=== PATIENT | male | born 1985 | race Caucasian/White ===

== ENCOUNTER 2020-06-07 14:17 | Emergency (ER) | payer OTHER, SELFPAY ==
[2020-06-07 15:45] VITALS: BP 150/84; PULSE 60; RESP 16; TEMP 36.7; O2SAT 99; BMI 32.8
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
== END 2020-06-07 16:22 | disposition home or self-care (01) ==
PROVIDERS: Emergency Provider Internal Medicine; PCP Internal Medicine
DX: S39.012A Strain of muscle, fascia and tendon of lower back, initial encounter (principal); M54.6 Pain in thoracic spine; V49.3XXA Car occupant (driver) (passenger) injured in unspecified nontraffic accident, initial encounter; Y93.9 Activity, unspecified; Y92.410 Unspecified street and highway as the place of occurrence of the external cause; Y99.9 Unspecified external cause status
CPT/HCPCS: 99283

== ENCOUNTER 2021-04-30 09:21 | Emergency (ER) | payer OTHER, SELFPAY ==
--- NOTE | ~2021-04-30 | US_ITS ---
EXAMINATION: CT BRAIN WITHOUT CONTRAST. ULTRASOUND RIGHT LOWER EXTREMITY VENOUS DUPLEX. CLINICAL INFORMATION: Right lower extremity paresthesia. Right leg numbness. COMPARISON: None TECHNIQUE: 5 mm thin axial and reformatted 2 mm thin sagittal and coronal images of brain were obtained without contrast. DLP 676. Routine grayscale and color Doppler imaging of right lower extremity was performed. FINDINGS: BRAIN: There is no acute intra-axial, extra-axial bleed, masses or midline shift. There is no acute infarction evolution. There is no edema. Both lateral ventricles are symmetrical in size and configuration without enlargement. Bone windows reveal no calvarial abnormality. Bilateral paranasal sinuses and mastoid air cells are well-aerated. There is no scalp soft tissue abnormality. ULTRASOUND VENOUS RIGHT LEG: There is normal compression, augmentation and flow seen in the right common femoral, greater saphenous, superficial femoral, profunda, popliteal, posterior tibial and peroneal veins. The soft tissues are normal. US/US venous duplex LE RT IMPRESSION: No acute intracranial process. Especially no evidence of acute ischemia or infarct. Normal right lower extremity venous study. No evidence of DVT.
[2021-04-30 09:24] VITALS: BP 164/114; PULSE 104; RESP 18; TEMP 36.6; O2SAT 100; BMI 31.4
[2021-04-30 10:05] VITALS: BP 171/111; PULSE 75; RESP 15; TEMP 36.7; O2SAT 96
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
[2021-04-30 10:25] LABS: MANUAL DIFF FLAG NO
[2021-04-30 10:26] LABS: Basophils Absolute Auto 0.1 X10*3/uL (0.0-0.2); Basophils Percent Auto 0.7 % (0-2); Eosinophils Absolute Auto 0.1 X10*3/uL (0.0-0.4); Eosinophils Percent Auto 0.9 % (0-4); Hematocrit 49.9 % (42-52); Hemoglobin 16.6 g/dl (14.0-18.0); Imm Gran Abs Auto 0.02 X10*3/uL (0.00-0.03); Imm Gran Pct Auto 0.2 % (0.0-0.4); Lymphocytes Absolute Auto 1.4 X10*3/uL (1.2-4.9); Lymphocytes Percent Auto 15.9 % (20-40); Mean Corpuscular HGB Conc 33.3 g/dl (31.0-36.0); Mean Corpuscular Hemoglobin 29.7 pg (27.0-33.0); Mean Corpuscular Volume 89.3 fL (80-98); Monocytes Absolute Auto 0.7 X10*3/uL (0.1-1.2); Neutrophils Absolute Auto 6.4 X10*3/uL (2.0-8.3); Neutrophils Percent Auto 74.3 % (45-73); Platelet Count 200 X10*3/uL (160-400); Red Blood Count 5.59 X10*6/uL (4.60-5.80); Red Cell Distribution Width 12.6 % (11.0-16.0); White Blood Count 8.6 X10*3/uL (4.8-10.8)
[2021-04-30 10:50] LABS: Alanine Aminotransferase 50 U/L (0-40); Albumin Level 4.8 g/dL (3.5-5.0); Alkaline Phosphatase 104 U/L (39-117); Anion Gap 7 (12-20); Aspartate Amino Transferase 28 U/L (5-37); Bilirubin Direct 0.2 mg/dL (0.0-0.5); Bilirubin Total 0.5 mg/dL (0.0-1.0); Blood Urea Nitrogen 9 mg/dL (9-16); Calcium 9.6 mg/dL (8.4-10.2); Carbon Dioxide 29 mmol/L (22-29); Chloride 107 mmol/L (96-108); Creatinine Clr Calc Pharmacy 110.4; Estimated Glomerular Filt Rate > 60; Glucose Random 97 mg/dL (60-115); Magnesium 2.3 mg/dL (1.6-2.6); Potassium 4.1 mmol/L (3.3-5.1); Sodium 139 mmol/L (135-145); Total Protein 7.8 g/dL (6.5-8.0)
[2021-04-30 11:51] VITALS: BP 135/82; PULSE 76
== END 2021-04-30 12:02 | disposition home or self-care (01) ==
PROVIDERS: Nurse Practitioner Family; Emergency Provider Emergency Medicine; PCP Internal Medicine
DX: R20.2 Paresthesia of skin (principal); R03.0 Elevated blood-pressure reading, without diagnosis of hypertension
CPT/HCPCS: 36415; 70450; 80048; 80076; 83735; 85025; 93971; 99284

== ENCOUNTER 2021-08-01 07:44 | Emergency (ER) | payer OTHER, SELFPAY ==
--- NOTE | ~2021-08-01 | CT_ITS ---
EXAMINATION: CT ABDOMEN AND PELVIS WITHOUT CONTRAST CLINICAL INFORMATION: Left-sided flank pain COMPARISON: None TECHNIQUE: Multidetector volumetric imaging was performed from the superior aspect of the liver through the pubic symphysis. Sagittal and coronal reformatted images were obtained on the technologist's workstation. This CT examination was performed using dose optimization techniques as appropriate, variously including the following: *Automated exposure control *Adjustment of mA and/or kV according to patient size (this includes techniques or standardized protocols for targeted exams where dose is matched to indication/reason for exam; i.e. extremities or head) *Use of iterative reconstruction technique DLP: 731 mGy-cm FINDINGS: LUNG BASES: The lung bases are clear. The heart size is normal. LIVER, GALLBLADDER, AND BILIARY TREE: The liver is normal in size, shape, and attenuation. No focal hepatic lesion or biliary ductal dilatation is present. The gallbladder is unremarkable with no evidence of radiopaque gallstones, gallbladder wall thickening, or obvious pericholecystic inflammatory changes. PANCREAS: Unremarkable. SPLEEN: Unremarkable. ADRENAL GLANDS: Unremarkable. KIDNEYS AND URETERS: The kidneys are normal in size, shape, and attenuation. No hydronephrosis, hydroureter, or calculi seen. No perinephric stranding. BLADDER: There is nonobstructive left UVJ intramural 4 mm radiopaque calculi without hydroureteronephrosis. It is best visualized on axial image 88/3. GASTROINTESTINAL TRACT: There is scattered stool, diverticula and gas seen throughout the colon without mural thickening or diverticulitis. There is no obstruction. The small bowel loops are normal caliber. Appendix is normal caliber. ABDOMINAL WALL: No significant hernia is appreciated. LYMPH NODES: Normal. VASCULAR: Unremarkable. PELVIC VISCERA: There is no pelvic mass seen. There is no free fluid. OSSEOUS STRUCTURES: No lytic or sclerotic process seen. CT/CT abdomen pelvis wo con IMPRESSION: Intramural left UVJ 4 mm radiopaque calculi without hydroureteronephrosis. Fleischner guidelines were followed.
[2021-08-01 07:50] VITALS: BP 147/88; PULSE 72; RESP 18; TEMP 37; O2SAT 99; BMI 33.3
--- NOTE | 2021-08-01 08:05 | PC.NURSE ---
ATTEMPTED TO CALL PATIENT INTO ED. NO ANSWER IN WAITING ROOM
[2021-08-01 08:22] VITALS: BP 146/94; PULSE 61; RESP 14; TEMP 36.8; O2SAT 96
[2021-08-01 08:36] LABS: Appearance Urine CLEAR; Color Urine YELLOW; Glucose Urine UA NEG (NEG); Leukocyte Esterase Urine NEG (NEG); Nitrite Urine NEG (NEG); PH 5.5 (5.0-8.0); Specific Gravity - Urine >= 1.030 (1.005-1.025); UACC Culture Trigger NO; Urine Blood 3+ (NEG); Urine Ketones NEG (NEG); Urine Protein NEG (NEG-TRACE)
[2021-08-01 08:36] LABS: MANUAL DIFF FLAG NO
[2021-08-01 08:37] LABS: Basophils Absolute Auto 0.1 X10*3/uL (0.0-0.2); Basophils Percent Auto 0.7 % (0-2); Eosinophils Absolute Auto 0.1 X10*3/uL (0.0-0.4); Eosinophils Percent Auto 1.3 % (0-4); Hematocrit 49.7 % (42.0-52.0); Hemoglobin 16.5 g/dl (14.0-18.0); Imm Gran Abs Auto 0.06 X10*3/uL (0.00-0.03); Imm Gran Pct Auto 0.6 % (0.0-0.4); Lymphocytes Absolute Auto 1.9 X10*3/uL (1.2-4.9); Lymphocytes Percent Auto 17.8 % (20-40); Mean Corpuscular HGB Conc 33.2 g/dl (31.0-36.0); Mean Corpuscular Hemoglobin 30.1 pg (27.0-33.0); Mean Corpuscular Volume 90.7 fL (80.0-98.0); Mean Platelet Volume 11.1 fL (9.4-12.4); Monocytes Absolute Auto 0.8 X10*3/uL (0.1-1.2); Monocytes Percent Auto 7.5 % (2-11); Neutrophils Absolute Auto 7.5 x10*3/uL (2.0-8.3); Neutrophils Percent Auto 72.1 % (45-73); Platelet Count 196 X10*3/uL (160-400); Red Blood Count 5.48 X10*6/uL (4.60-5.80); Red Cell Distribution Width 12.7 % (11.0-16.0); White Blood Count 10.4 X10*3/uL (4.8-10.8)
[2021-08-01 08:45] LABS: WBC Urine 0-2 /HPF (0-4)
[2021-08-01 08:46] LABS: Mucus Urine 1+ /LPF; Squamous Epithelial Cell Urine TRACE /LPF
[2021-08-01 08:57] LABS: Alanine Aminotransferase 35 U/L (0-40); Albumin Level 4.5 g/dL (3.5-5.0); Alkaline Phosphatase 98 U/L (39-117); Aspartate Amino Transferase 21 U/L (5-37); Bilirubin Direct 0.2 mg/dL (0.0-0.5); Bilirubin Total 0.5 mg/dL (0.0-1.0); Blood Urea Nitrogen 12 mg/dL (9-16); Calcium 9.8 mg/dL (8.4-10.2); Creatinine Clr Calc Pharmacy 117.2; Estimated Glomerular Filt Rate > 60; Glucose Random 106 mg/dL (60-115); Total Protein 7.5 g/dL (6.5-8.0)
[2021-08-01 09:09] LABS: Anion Gap 10 (12-20); Carbon Dioxide 26 mmol/L (22-29); Chloride 107 mmol/L (96-108); Potassium 4.1 mmol/L (3.3-5.1); Sodium 139 mmol/L (135-145)
--- NOTE | 2021-08-01 09:20 | ED_ITS ---
HPI - General Adult General Chief complaint: Abdominal Pain Stated complaint: back pain quest kidney stone Time Seen by Provider: 08/01/21 09:19 Source: patient Mode of arrival: ambulatory Limitations: no limitations History of Present Illness HPI narrative: 36-year-old male with a history of kidney stones states that at 6:45 a.m. this morning he had sudden severe left flank pain that lasted for 20 minutes. Patient vomited from the pain it was at severe. Patient felt like he needed to urinate but could not. Patient had kidney stones summer 2019, states this pain feels the same. A patient was able to passed stone without intervention. Patient has not noticed any blood in his urine, he has no abdominal pain. He currently has no flank pain at this time. He has had no fevers and no nausea. He feels that his urinary stream is not strong in that he is dribbling. This happened before when he had a kidney stone. Related Data Previous Rx's Medication Instructions Recorded ibuprofen 600 mg tablet 600 mg PO Q6H PRN #20 tab 06/07/20 ketorolac 10 mg tablet 10 mg PO Q6H 5 Days #20 tab 08/01/21 prednisone 20 mg tablet 40 mg PO DAILY 5 Days #10 tab 08/01/21 tamsulosin 0.4 mg capsule 0.4 mg PO BEDTIME #30 cap 08/01/21 Allergies Allergy/AdvReac Type Severity Reaction Status Date / Time No Known Allergies Allergy Verified 04/30/21 09:24 [No Known Allergies*] Review of Systems Constitutional: Constitutional: Denies body ache(s), Denies chills, Denies fatigue, Denies fever(s), Denies headache(s), Denies malaise and Denies weakness Eyes: Eyes: Denies diplopia ENT: Denies vertigo, Denies dizziness, Denies otalgia, Denies headache(s), Denies mouth pain, Denies post nasal drip, Denies sinus pain, Denies sinus pressure, Denies sore throat and Denies throat swelling Cardiovascular: Cardiovascular: Denies chest pain, Denies syncope, Denies leg edema, Denies lightheadedness, Denies Loss of Consciousness, Denies palpitations and Denies dyspnea Respiratory: Respiratory: Denies chest congestion, Denies cough and Denies dyspnea Gastrointestinal: Gastrointestinal: Denies abdominal pain, Denies hematochezia, Denies constipation, Denies diarrhea and Denies vomiting Genitourinary: Genitourinary: Denies hematuria, Reports difficulty urinating, Denies dysuria, Reports flank pain, Denies testicular pain, Reports urinary hesitancy, Denies urinary incontinence and Denies urinary urgency Musculoskeletal: Musculoskeletal: Reports no additional musculoskeletal complaints Neurologic: Denies confusion, Denies vertigo, Denies dizziness, Denies syncope, Denies headache(s) and Denies weakness Psychiatric: Psychiatric: Denies anxiety, Denies confusion and Denies depression Endocrine: Endocrine: Denies fatigue and Denies palpitations Allergic/Immunologic: Allergic/Immunologic: Denies throat swelling PMFSH Past Medical History Medical History No known health problems Social History Social History Alcohol intake: current Alcohol intake frequency: holidays/special occasions only Alcohol type: beer Patient Tobacco Use Status: Never used Tobacco Use of substances other than those prescribed or required for medical reasons: No Advance Directives: Yes Advance Directives Information Provided: Yes Advance Directives on File: No Physical Exam Vital Signs: Vital Signs: Last Vital Signs Temp 98.4 F 08/01/21 13:48 Pulse 68 08/01/21 13:48 Resp 17 08/01/21 13:48 BP 150/101 H 08/01/21 13:48 Pulse Ox 99 08/01/21 13:48 BMI result Body Mass Index 33.3 Const: General: well developed, alert and awake; No confusion Nutritional Appearance: well nourished Orientation/consciousness: patient oriented x3 and No confusion Limitations: no limitations HENMT: Head: Yes normal to inspection, Yes normocephalic and Yes atraumatic Ears: hearing grossly normal bilaterally, external ears normal, TM's normal bilaterally and EAC's normal General nose exam: Normal external nose present Face and sinus: Yes normal facial exam and Yes sinuses nontender Mouth: Normal oral and palatal mucosa present Throat: Yes posterior oropharynx normal Eyes: Conjunctivae: conjunctivae normal Pupils: Equal, round and reactive pupils present EOM: EOMs intact bilaterally Neck: Neck: Yes full ROM, Yes no lymphadenopathy and Yes supple Resp: Effort & Inspection: normal respiratory effort and able to speak in complete sentences Auscultation: clear to auscultation bilaterally, no crackles, no rales, no rhonchi and no wheezes Cardio: Rate: regular rate Rhythm: regular rhythm Heart sounds: S1 normal heart sound present and S2 normal heart sound present GI: Inspection: Yes normal to inspection Palpation (GI): Soft to palpation, nontender, no guarding and not rigid Percussion: Yes normal to percussion Auscultation: normal bowel sounds : General: Yes no CVA tenderness Back/Spine/Pelvis: Back: no CVA tenderness Skin: General skin exam: no rashes or lesions noted Neuro: General: patient oriented x3 and No confusion Cranial nerves: Yes Equal, round and reactive pupils present Extrem: General: Yes normal to inspection and Yes full ROM Psych: Appearance: grossly normal Affect: normal affect Attitude: cooperative Thought process: Normal thought process present Course Course Course Narrative: 56-year-old male with a history of kidney stone, presents with sudden onset of a short episode of left-sided flank pain that was severe earlier this morning. States this pain felt like when he had a kidney stone before. On exam, patient is stable vitals, benign abdominal exam, no CVA tenderness. Labs are unremarkable, urine shows hematuria. Reevaluation(s) Reevaluation #1: Intramural left UVJ 4 mm radiopaque calculi without hydroureteronephrosis. Will give ketorolac, Flomax, prednisone, follow-up with urology. Gave return precautions of worsening uncontrolled pain, vomiting, any other new or concerning symptoms, patient verbalized agreement and understanding Medical Decision Making Lab Data Result diagrams: 08/01/21 08:29 08/01/21 08:29 Labs: Lab Results 08/01/21 08/01/21 08/01/21 Range/Units 08:29 08:29 08:30 WBC 10.4 (4.8-10.8) X10*3/uL RBC 5.48 (4.60-5.80) X10*6/uL Hgb 16.5 (14.0-18.0) g/dl Hct 49.7 (42.0-52.0) % MCV 90.7 (80.0-98.0) fL MCH 30.1 (27.0-33.0) pg MCHC 33.2 (31.0-36.0) g/dl RDW 12.7 (11.0-16.0) % Plt Count 196 (160-400) X10*3/uL MPV 11.1 (9.4-12.4) fL Immature Gran % (Auto) 0.6 H (0.0-0.4) % Neut % (Auto) 72.1 (45-73) % Lymph % (Auto) 17.8 L (20-40) % [place]eves % (Auto) 7.5 (2-11) % Eos % (Auto) 1.3 (0-4) % Baso % (Auto) 0.7 (0-2) % Lymph # (Auto) 1.9 (1.2-4.9) X10*3/uL [place]eves # (Auto) 0.8 (0.1-1.2) X10*3/uL Eos # (Auto) 0.1 (0.0-0.4) X10*3/uL Baso # (Auto) 0.1 (0.0-0.2) X10*3/uL Abs Immat Gran (auto) 0.06 H (0.00-0.03) X10*3/uL Absolute Neuts (auto) 7.5 (2.0-8.3) x10*3/uL Absolute Nucleated RBC 0.000 (0.0-0.012) X10*3/uL Nucleated RBC % (auto) 0.0 (0.0-0.2) /100WBC Sodium 139 (135-145) mmol/L Potassium 4.1 (3.3-5.1) mmol/L Chloride 107 (96-108) mmol/L Carbon Dioxide 26 (22-29) mmol/L Anion Gap 10 L (12-20) BUN 12 (9-16) mg/dL Creatinine 0.91 (0.5-1.4) mg/dL Estim Creat Clear Calc 117.2 Estimated GFR > 60 Random Glucose 106 (60-115) mg/dL Calcium 9.8 (8.4-10.2) mg/dL Total Bilirubin 0.5 (0.0-1.0) mg/dL Direct Bilirubin 0.2 (0.0-0.5) mg/dL AST 21 (5-37) U/L ALT 35 (0-40) U/L Alkaline Phosphatase 98 (39-117) U/L Total Protein 7.5 (6.5-8.0) g/dL Albumin 4.5 (3.5-5.0) g/dL Urine Color YELLOW Urine Appearance CLEAR Urine pH 5.5 (5.0-8.0) Ur Specific [place] >= 1.030 H (1.005-1.025) Urine Protein NEG (NEG-TRACE) MG/DL Urine Glucose (UA) NEG (NEG) MG/DL Urine Ketones NEG (NEG) MG/DL Urine Blood 3+ H (NEG) Urine Nitrite NEG (NEG) Ur Leukocyte Esterase NEG (NEG) Urine RBC 10-14 H (0) /HPF Urine WBC 0-2 (0-4) /HPF Ur Squamous Epith Cells TRACE /LPF Urine Bacteria NONE /LPF Urine Mucus 1+ /LPF Discharge Plan Discharge Clinical Impression: Calculus of kidney Patient Disposition: Home, Self-Care Instructions: Kidney Stones (ED), How to Strain Your Urine (ED), Flank Pain (ED) Additional Instructions: Please pickle solution maker the prescriptions that I have sent to your pharmacy. Please take them as prescribed. Please do not take any ibuprofen containing products while you are taking the ketorolac. Do not wait until you have pain, take the ketorolac every [address] Nguyen , Urologist, at [phone] for a follow up appointment next week If you have severe pain that is uncontrolled, vomiting, or fevers, or any other new or concerning symptoms, please return to emergency room Prescriptions: New ketorolac 10 mg tablet 10 mg PO Q6H 5 Days Qty: 20 RF: 0 tamsulosin 0.4 mg capsule 0.4 mg PO BEDTIME Qty: 30 RF: 0 prednisone 20 mg tablet 40 mg PO DAILY 5 Days Qty: 10 RF: 0 No Action ibuprofen 600 mg tablet 600 mg PO Q6H PRN (Reason: pain) Qty: 20 RF: 0 Referrals: Jayson Nguyen MD [Physician] - 2 days Stand Alone Forms: Work/School Release
[2021-08-01 10:19] VITALS: BP 140/84; PULSE 74; RESP 16; TEMP 37.1; O2SAT 98
[2021-08-01] MEDS: 0.9 % Sodium Chloride 1,000 ML 999 ML IV (10:32)
[2021-08-01 13:48] VITALS: BP 150/101; PULSE 68; RESP 17; TEMP 36.9; O2SAT 99
[2021-08-01] MEDS: Ketorolac Tromethamine 30 MG/ML VIAL IVPUSH (14:05)
== END 2021-08-01 14:15 | disposition home or self-care (01) ==
PROVIDERS: Emergency Provider Emergency Medicine; PCP Internal Medicine
DX: N20.0 Calculus of kidney (principal); R10.9 Unspecified abdominal pain; R33.9 Retention of urine, unspecified; Z79.899 Other long term (current) drug therapy
CPT/HCPCS: 36415; 74176; 80053; 81001; 82248; 85025; 96361; 96374; 99284; 99285; J1885

== ENCOUNTER 2021-08-04 11:00 | Outpatient (REF) | payer OTHER, SELFPAY ==
[2021-08-08 00:31] LABS: Stone Source KIDNEY
== END 2021-08-04 11:03 | disposition home or self-care (01) ==
LOC: HO.LAB 11:00
PROVIDERS: PCP Internal Medicine
DX: N20.0 Calculus of kidney (principal)
CPT/HCPCS: 82365; 88300

== ENCOUNTER 2022-01-20 15:36 | Outpatient (REF) | payer OTHER, SELFPAY ==
--- NOTE | ~2022-01-20 | US_ITS ---
EXAMINATION: US RETROPERITONEAL LIMITED (RENAL ONLY) CLINICAL INFORMATION: Calculus of kidney. COMPARISON: CT abdomen and pelvis 08/01/2021. TECHNIQUE: Real-time imaging of the kidneys. FINDINGS: RIGHT KIDNEY: 11.4 x 6.3 x 6.3 cm (SAG x AP x TRV). The kidney is normal in size, contour, and echogenicity. Renal cortical thickness is normal. No calculi or focal parenchymal lesions. No hydronephrosis. LEFT KIDNEY: 11.8 x 5.9 x 5.1 cm (SAG x AP x TRV). The kidney is normal in size, contour, and echogenicity. Renal cortical thickness is normal. No calculi or focal parenchymal lesions. No hydronephrosis. ADDITIONAL FINDINGS: Focal fatty sparing versus other etiology in the right inferior lower lobe of liver. It measures 1.9 x 1.6 x 2.1 cm. US/US renal BI IMPRESSION: Unremarkable renal ultrasound. Likely focal fatty infiltration.
== END 2022-01-20 15:37 | disposition home or self-care (01) ==
LOC: HO.US 15:36
PROVIDERS: PCP Internal Medicine
DX: N20.0 Calculus of kidney (principal)
CPT/HCPCS: 76775

== ENCOUNTER 2022-01-25 18:40 | Emergency (ER) | payer OTHER, SELFPAY ==
--- NOTE | ~2022-01-25 | XR_ITS ---
EXAMINATION: XR CHEST CLINICAL INFORMATION: Chest pain. COMPARISON: None TECHNIQUE: Frontal view of the chest was obtained. FINDINGS: The lungs are well expanded. There is no focal consolidation, edema, or effusion. No pneumothorax. The cardiomediastinal silhouette is within normal limits. No acute osseous abnormality. XR/XR chest 1V IMPRESSION: Clear lungs.
[2022-01-25 18:48] VITALS: BP 175/103; PULSE 82; RESP 16; TEMP 36.9; O2SAT 99; BMI 33.6
--- NOTE | 2022-01-25 18:51 | ECG_ITS ---
Test Reason : CHEST PAIN Blood Pressure : / mmHG Vent. Rate : 067 BPM Atrial Rate : 067 BPM P-R Int : 162 ms QRS Dur : 100 ms QT Int : 376 ms P-R-T Axes : 020 046 014 degrees QTc Int : 397 ms Normal sinus rhythm with sinus arrhythmia Normal ECG No previous ECGs available Referred By: Generic ED Physician Electronically Signed By:CYNTHIA PABON MD
[2022-01-25 19:04] LABS: Hematocrit 47.3 % (42.0-52.0); Hemoglobin 15.7 g/dl (14.0-18.0); Mean Corpuscular HGB Conc 33.2 g/dl (31.0-36.0); Mean Corpuscular Hemoglobin 29.8 pg (27.0-33.0); Mean Corpuscular Volume 89.8 fL (80.0-98.0); Mean Platelet Volume 11.3 fL (9.4-12.4); Platelet Count 195 X10*3/uL (160-400); Red Blood Count 5.27 X10*6/uL (4.60-5.80); Red Cell Distribution Width 12.9 % (11.0-16.0); White Blood Count 11.4 X10*3/uL (4.8-10.8)
[2022-01-25 19:20] LABS: Anion Gap 12 (12-20); Blood Urea Nitrogen 12 mg/dL (9-16); Calcium 9.6 mg/dL (8.4-10.2); Carbon Dioxide 26 mmol/L (22-29); Chloride 106 mmol/L (96-108); Creatinine Clr Calc Pharmacy 111.8; Estimated Glomerular Filt Rate > 60; Glucose Random 108 mg/dL (60-115); Potassium 4.6 mmol/L (3.3-5.1); Sodium 139 mmol/L (135-145)
[2022-01-25 19:44] LABS: Troponin-I High Sensitivity 6.1 ng/L (<3.5-35.0)
--- NOTE | 2022-01-25 21:29 | ED.CHESTPAIN ---
HPI - Chest Pain General Chief Complaint: Chest Pain Stated Complaint: CHEST PAIN NECK PAIN Time Seen by Provider: 01/25/22 19:47 History of Present Illness HPI narrative: Patient is a 37-year-old male presents today with having chest pain. The chest pain is mid chest. Associated with no shortness of breath no diaphoresis. Happen prior to lunch. Also happen today. These pains are not associate with exertion. No shortness of breath no diaphoresis. Resolved spontaneously. It lasts a few minutes. No history of diabetes. No history of hypertension high cholesterol smoking. No history of WI. No family history of WI. no travel history no history of leg pain. No history of blood clots in the past no history of cancer. Patient is from home. Also complaining of a lymph node that is in the left neck. It has been going on for about a week. No coughing no congestion or upper respiratory symptoms. MD complaint: chest pain Related Data Previous Rx's Medication Instructions Recorded ibuprofen 600 mg tablet 600 mg PO Q6H PRN pain #20 tabs 06/07/20 ketorolac 10 mg tablet 10 mg PO Q6H 5 days #20 tabs 08/01/21 prednisone 20 mg tablet 40 mg PO DAILY 5 days #10 tabs 08/01/21 tamsulosin 0.4 mg capsule 0.4 mg PO BEDTIME #30 caps 08/01/21 pyridoxine (vitamin B6) 50 mg 50 mg PO DAILY renal calculi 30 08/04/21 capsule days #30 caps Allergies Allergy/AdvReac Type Severity Reaction Status Date / Time No Known Allergies Allergy Verified 01/25/22 18:51 [No Known Allergies*] Review of Systems Review of Systems: No fever no chills no diaphoresis no coughing or congestion or respiratory symptoms. No neck pain. Yes all other systems are reviewed and are negative PMFSH Past Medical History Attestation statement: The following information was validated with the patient. Medical History No known health problems Renal calculi Social History Social History Alcohol intake: current Alcohol intake frequency: holidays/special occasions only Alcohol type: beer Patient Tobacco Use Status: Never used Tobacco Advance Directives: No Advance Directives Information Provided: No Physical Exam Vital Signs: Vital Signs: Last Vital Signs Temp 98.4 F 01/25/22 18:48 Pulse 82 01/25/22 18:48 Resp 16 01/25/22 18:48 BP 175/103 H 01/25/22 18:48 Pulse Ox 99 01/25/22 18:48 O2 Del Method 01/25/22 18:48 BMI result Body Mass Index 33.6 Appearance: Alert. Oriented X3. No acute distress. Eyes: Pupils equal, round and reactive to light. ENT: Pharynx normal. Neck: Normal inspection. Neck supple. Positive lymph nodes noted at the left posterior triangle. Clearly mobile.. No crepitus CVS: Normal heart rate and rhythm. Pulses normal. Normal S1 and S2 Respiratory: No respiratory distress. Breath sounds normal. No Wheezing. No rales Abdomen: Soft and nontender. No rigidity. No distention. good BS x4 Skin: Skin warm and dry. Normal skin color. Normal skin turgor. Extremities: No lower extremity edema. Neurovascular intact to all extremities. No Lacerations. No Rash Neuro: Oriented X 3. No motor deficit. No sensory deficit. Moving all extermities. No slurred speech MDM - Chest Pain MDM Narrative Medical decision making narrative: Well-appearing no acute distress. Patient's chest pain atypical. He is 37 years old with no significant cardiac risk factors. His chest pain is atypical his troponin is negative his heart score is less than 3. Unlikely ACS. Will have patient follow-up on an outpatient basis. No risk for PE. Chest x-ray showed no evidence of pneumonia pneumothorax. Patient is in stable condition. Will discharge home. Medical Records Data Attestation: I reviewed the patient's medical records. Lab Data Attestation: I reviewed the patient's lab results. Result diagrams: 01/25/22 18:59 01/25/22 18:59 Labs: Lab Results 01/25/22 01/25/22 01/25/22 Range/Units 18:59 18:59 18:59 WBC 11.4 H (4.8-10.8) X10*3/uL RBC 5.27 (4.60-5.80) X10*6/uL Hgb 15.7 (14.0-18.0) g/dl Hct 47.3 (42.0-52.0) % MCV 89.8 (80.0-98.0) fL MCH 29.8 (27.0-33.0) pg MCHC 33.2 (31.0-36.0) g/dl RDW 12.9 (11.0-16.0) % Plt Count 195 (160-400) X10*3/uL MPV 11.3 (9.4-12.4) fL Absolute Nucleated RBC 0.000 (0.0-0.012) X10*3/uL Nucleated RBC % (auto) 0.0 (0.0-0.2) /100WBC Sodium 139 (135-145) mmol/L Potassium 4.6 (3.3-5.1) mmol/L Chloride 106 (96-108) mmol/L Carbon Dioxide 26 (22-29) mmol/L Anion Gap 12 (12-20) BUN 12 (9-16) mg/dL Creatinine 0.95 (0.5-1.4) mg/dL Estim Creat Clear Calc 111.8 Estimated GFR > 60 Random Glucose 108 (60-115) mg/dL Calcium 9.6 (8.4-10.2) mg/dL Troponin I High Sens 6.1 (<3.5-35.0) ng/L Discharge Plan Discharge Clinical Impression: Chest pain Patient Disposition: Home, Self-Care Instructions: Chest Pain (ED) Prescriptions: No Action ibuprofen 600 mg tablet 600 mg PO Q6H PRN (Reason: pain) Qty: 20 0RF ketorolac 10 mg tablet 10 mg PO Q6H 5 Days Qty: 20 0RF tamsulosin 0.4 mg capsule 0.4 mg PO BEDTIME Qty: 30 0RF prednisone 20 mg tablet 40 mg PO DAILY 5 Days Qty: 10 0RF pyridoxine (vitamin B6) 50 mg capsule 50 mg PO DAILY 30 Days Qty: 30 3RF Referrals: Abdiaziz Zarco MD [Primary Care Provider] -
== END 2022-01-25 21:39 | disposition home or self-care (01) ==
PROVIDERS: Emergency Provider Emergency Medicine Emergency Medical Services; PCP Internal Medicine
DX: R07.9 Chest pain, unspecified (principal)
CPT/HCPCS: 36415; 71045; 80048; 84484; 85027; 93005; 99283

== ENCOUNTER 2022-07-21 13:18 | Outpatient (REF) | payer OTHER, SELFPAY ==
--- NOTE | ~2022-07-21 | US_ITS ---
EXAMINATION: US RETROPERITONEAL LIMITED (RENAL ONLY) CLINICAL INFORMATION: Calculus of kidney. COMPARISON: Ultrasound renal 01/20/2022. CT abdomen and pelvis 08/01/2021. TECHNIQUE: Real-time imaging of the kidneys. Limited visualization due to bowel gas and body habitus. FINDINGS: RIGHT KIDNEY: 9.9 x 6.9 x 5.0 cm (SAG x AP x TRV). No hydronephrosis. No renal calculi. Limited visualization. LEFT KIDNEY: 10.2 x 5.7 x 6.5 cm (SAG x AP x TRV). No hydronephrosis. No renal calculi. Limited visualization. US/US renal BI IMPRESSION: No hydronephrosis. No renal calculi. Limited visualization.
== END 2022-07-21 13:19 | disposition home or self-care (01) ==
LOC: HO.US 13:18
DX: N20.0 Calculus of kidney (principal)
CPT/HCPCS: 76775

== ENCOUNTER 2022-08-04 15:34 | Outpatient (REF) | payer OTHER, SELFPAY ==
[2022-08-04 16:51] LABS: Urine Cytology See Pathology rpt
== END 2022-08-04 15:35 | disposition home or self-care (01) ==
LOC: HO.LAB 15:34
PROVIDERS: PCP Internal Medicine; Visit Provider Nurse Practitioner Family
DX: N20.0 Calculus of kidney (principal)
CPT/HCPCS: 88112

== ENCOUNTER 2023-07-26 10:22 | Outpatient (REF) | payer OTHER, SELFPAY ==
--- NOTE | ~2023-07-26 | US_ITS ---
EXAMINATION: US RETROPERITONEAL LIMITED (RENAL ONLY) CLINICAL INFORMATION: Calculus of kidney. COMPARISON: Renal ultrasound 07/21/2022 and 01/20/2022. CT abdomen and pelvis without contrast 08/01/2021. TECHNIQUE: Real-time imaging of the kidneys. Limited visualization due to bowel gas and body habitus. FINDINGS: RIGHT KIDNEY: 10.1 x 5.2 x 7.4 cm (SAG x AP x TRV). No hydronephrosis. No renal calculi. Renal cortical thickness is normal. Limited visualization. LEFT KIDNEY: 11.0 x 5.9 x 4.7 cm (SAG x AP x TRV). No hydronephrosis. No renal calculi. Renal cortical thickness is normal. Limited visualization. US/US renal BI IMPRESSION: No hydronephrosis. No renal calculi. Limited visualization.
== END 2023-07-26 10:23 | disposition home or self-care (01) ==
LOC: HO.HMGCX 10:22
PROVIDERS: PCP Internal Medicine; Visit Provider Nurse Practitioner Family
DX: N20.0 Calculus of kidney (principal)
CPT/HCPCS: 76775

== ENCOUNTER 2023-08-04 15:20 | Outpatient (AMB) | payer OTHER, SELFPAY ==
--- NOTE | 2023-08-04 15:28 | A.OFFVIS_ITS ---
Intake Intake Visit Reasons: 1yr follow up/US(set) Intake Note: Patient is present for follow up Ultrasound kidney stone (imaging 07/26/23) Urology Medication: none Blood Thinner: none Lapper Required: No Accompanied by: Self / Same As Patient Allergies No Known Allergies [No Known Allergies*] Allergy (Verified 08/04/23 20:04) Medication List - Last Reconciled 08/04/23 by WAQAR Don amlodipine 5 mg PO DAILY hydrochlorothiazide 12.5 mg PO DAILY HPI HPI Comments History of Present Illness Details Christoph is a very pleasant 38-year-old male patient. He has a past medical history of hypertension and nephrolithiasis. He presents to the office today for follow-up of his longstanding history of nephrolithiasis. Recent renal imaging results reviewed with the patient today. Bilateral kidneys with no calculi, lesions, and or hydronephrosis noted. When asked he denies any bothersome urinary issues or concerns. He reports to be drinking plenty of water daily. When asked he denies urinary urgency, urinary frequency, incontinence, nocturia, hematuria, dysuria, foul smelling urine, changes to urinary stream, flank pain, fever, and or chills. He is happy with his current voiding parameters. In office urinalysis results reviewed with the patient today. He otherwise offers no other issues or concerns at this time. COUNT INCLUDES THE [facility] Medical History Renal calculi No known health problems Social History Alcohol intake: current Alcohol intake frequency: holidays/special occasions only Alcohol type: beer Patient Tobacco Use Status: Never used Tobacco Review of Systems Const Reports no additional complaints Eyes Reports no additional complaints ENT Reports no additional complaints Card Reports as per HPI Resp Reports no additional complaints GI Reports no additional complaints Reports as per HPI Musc Reports no additional complaints Neuro Reports no additional complaints Psych Reports no additional complaints Endo Reports no additional complaints Rebel/Lymph Reports no additional complaints Aller/Immun Reports no additional complaints Physical Exam Const General: cooperative, healthy appearing, comfortable, no acute distress, well developed, alert and awake Orientation/consciousness: patient oriented x3 Limitations: no limitations HEENT Head: Yes normal to inspection, Yes normocephalic and Yes atraumatic Ears: hearing grossly normal bilaterally Eyes General: appearance normal, both eyes and all related structures Neck Neck: Yes normal visual inspection and Yes trachea midline Chest Chest palpation & inspection: normal inspection of the chest Resp Effort & Inspection: normal respiratory effort and able to speak in complete sentences Cardio Rate: regular rate GI Inspection: Yes normal to inspection General: Yes no CVA tenderness Back/Spine/Pelvis Back: no CVA tenderness Skin General skin exam: no rashes or lesions noted Neuro General: patient oriented x3 Extrem General: Yes normal to inspection Psych Appearance: grossly normal and well kempt Mental Status: mental status grossly normal Speech and movement: Normal speech and movement present and Clear speech present Affect: normal affect Attitude: cooperative Thought process: Normal thought process present Thought content: Normal thought content present Insight: Good insight present (Psych) Judgement: Good judgement present (Psych) Results AMB Urinalysis, Automated UA Leukoctes 0 Keerthi/uL Last Edit by [employer] on 08/04/23 15:51 UA Nitrite Negative Last Edit by [employer] on 08/04/23 15:51 UA Urobilinogen 0.2 mg/dL Last Edit by [employer] on 08/04/23 15:51 UA Protein 0 mg/dL Last Edit by [employer] on 08/04/23 15:51 UA pH 6.0 Last Edit by [employer] on 08/04/23 15:51 UA Blood 0 Margarito/uL Last Edit by [employer] on 08/04/23 15:51 UA Specific Morton 1.025 Last Edit by [employer] on 08/04/23 15:51 UA Ketone Negative Last Edit by [employer] on 08/04/23 15:51 UA Bilirubin 0 mg/dL Last Edit by [employer] on 08/04/23 15:51 UA Glucose 0 mg/dL Last Edit by [employer] on 08/04/23 15:51 Results Reviewed Results Reviewed: Laboratory Last Values Urine pH (Auto) 6.0 08/04/23 15:34 Specific Morton (Auto) 1.025 08/04/23 15:34 Urine Protein (Auto) 0 mg/dL 08/04/23 15:34 Glucose (UA)(Auto) 0 mg/dL 08/04/23 15:34 Urine Ketones (Auto) Negative 08/04/23 15:34 Urine Blood (Auto) 0 Margarito/uL 08/04/23 15:34 Urine Nitrite (Auto) Negative 08/04/23 15:34 Urine Bilirubin (Auto) 0 mg/dL 08/04/23 15:34 Urine Urobilinogen (Auto) 0.2 mg/dL 08/04/23 15:34 Leukocyte Esterase (Auto) 0 Keerthi/uL 08/04/23 15:34 Date of Service: 07/26/23 EXAMINATION: US RETROPERITONEAL LIMITED (RENAL ONLY) FINDINGS: RIGHT KIDNEY: 10.1 x 5.2 x 7.4 cm (SAG x AP x TRV). No hydronephrosis. No renal calculi. Renal cortical thickness is normal. Limited visualization. LEFT KIDNEY: 11.0 x 5.9 x 4.7 cm (SAG x AP x TRV). No hydronephrosis. No renal calculi. Renal cortical thickness is normal. Limited visualization. IMPRESSION: No hydronephrosis. No renal calculi. Limited visualization. Assessment & Plan Assessment & Plan (1) Renal calculi: Code(s): N20.0 - Calculus of kidney Plan In office urinalysis results reviewed with the patient today; as noted above. Recent renal imaging results reviewed with the patient today; as noted above. Discussed educated, and stressed the importance of continuing to drink plenty of water daily. Discussed adding 1 oz of lemon juice to water daily. Patient currently denies any bothersome urological issues or concerns at this time. He reports be happy with current voiding parameters. Will obtain renal ultrasound in 2 years. Follow-up in 2 years with imaging to be completed prior; or sooner with any issues, concerns, and or questions. Orders: Orders AMB Urinalysis Automated Today Z13.9 - Encounter for screening, unspecified Patient Instructions: The patient had an opportunity to ask questions regarding the treatment plan. All questions were answered. Physical exam, labs, and imaging were discussed and reviewed in detail. As well as risks, benefits, and discussion of treatment choices. No major barriers to understanding were identified. The patient expressed understanding and agreement with the above treatment plan. The patient was made aware they should contact our office by phone for worsening of their current condition, the appearance of new symptoms, or with any questions or concerns. Compliance is encouraged with any medications and follow up testing that is ordered. It is a privilege to be allowed the opportunity to participate in? your urological care.? Again, if you have any questions or concerns If you have any questions or concerns please do not hesitate to contact me. The office is [phone]. This note is constructed using voice recognition software. While every effort has been made to ensure accuracy stripper color errors may have been included. Yours sincerely, WAQAR Don Coding Level of Care Code Est Pt Level 3 (01976) Diagnoses Renal calculi N20.0
== END 2023-08-04 16:09 | disposition home or self-care (01) ==
PROVIDERS: Visit Provider Nurse Practitioner Family
DX: N20.0 Calculus of kidney (principal)
CPT/HCPCS: 99213

== ENCOUNTER → 2023-08-04 15:20 | Outpatient (BNVA) | payer OTHER, SELFPAY | PROVIDERS: Visit Provider Nurse Practitioner Family | DX: N20.0 Calculus of kidney (principal) | CPT/HCPCS: 81003 ==

== ENCOUNTER 2024-05-31 07:08 | Emergency (ER) | payer OTHER, SELFPAY ==
--- NOTE | ~2024-05-31 | XR_ITS ---
EXAMINATION: XR LUMBOSACRAL SPINE CLINICAL INFORMATION: Back pain COMPARISON: None available. TECHNIQUE: Three views of the lumbosacral spine. FINDINGS: No fracture or destructive process or alignment abnormality. Vertebral body heights and disc space heights appear preserved. XR/XR lumbar spine 2-3V IMPRESSION: Unremarkable examination. Electronically signed by: Jeff Butler MD 05/31/2024 09:53 AM EST
--- NOTE | ~2024-05-31 | XR_ITS ---
EXAMINATION: XR ABDOMEN KUB CLINICAL INDICATION: Abdominal pain COMPARISON: None available. TECHNIQUE: AP view of the abdomen. FINDINGS: No bowel obstruction or free air or mass effect. Stool burden appears to be within normal limits. Bony structures intact. XR/XR KUB IMPRESSION: Unremarkable study. Electronically signed by: Jeff Butler MD 05/31/2024 09:52 AM [facility]
[2024-05-31 07:13] VITALS: BP 136/89; PULSE 92; RESP 16; TEMP 37; O2SAT 100; BMI 34.7
[2024-05-31 08:23] LABS: Appearance Urine Turbid; Color Urine Yellow; Glucose Urine UA Negative (Negative); Leukocyte Esterase Urine Negative (Negative); Nitrite Urine Negative (Negative); PH 8.5 (5.0-9.0); Urine Blood Negative (Negative); Urine Ketones Negative (Negative); Urine Protein Negative (Neg-Trace)
--- NOTE | 2024-05-31 09:32 | ED_ITS ---
HPI - General Adult General Chief complaint: General Medical Stated complaint: Abd pain, back pain Time Seen by Provider: 05/31/24 09:31 Source: patient and RN notes reviewed Mode of arrival: ambulatory Limitations: no limitations History of Present Illness ED Provider: Ludmila Banegas PA-C HPI narrative: This is a 39-year-old male who presents emergency department with complaints of back pain for the last 3 weeks. Patient states that 3 weeks ago he felt as though he injured his back, he is unsure if he lifted up his 1-year-old child and caused him to twist his back which caused him to have this pain. He states that the pain has been waking him up in the middle of the night. He has a history of kidney stones however his symptoms do not feel similar. He states that the pain worsens with movement of his back in twisting his torso. He denies the pain radiating anywhere. He denies any urinary symptoms. Denies any abdominal pain. No numbness or tingling into the groin. He is urinating freely. He also reports that since Wednesday he has had constipation. He states that he typically has multiple bowel movements per day however states that since Wednesday he is having less frequent bowel movements, last bowel movement was this morning, soft in nature. He has been taking magnesium [id number] which has provided him with some relief. Denies any bloody or black stool. No recent significant weight loss, no drenching night sweats. No history of colon cancer that runs in the family that he is aware of. He has not had a colonoscopy. He has been trying [id number] ibuprofen and Tylenol as well for his back which has provided him with minimal relief. No hx of IVDA. No other complaints or concerns at this time. MD complaint: Back pain, constipation Relieving factors: none Exacerbating factors: none Associated symptoms: denies other symptoms Treatments prior to arrival: none Related Data Home Medications ?Medication ?Instructions ?Recorded ?Confirmed amlodipine 5 mg tablet 5 mg PO DAILY 08/04/22 08/04/22 hydrochlorothiazide 12.5 mg tablet 12.5 mg PO DAILY 08/04/22 08/04/22 Previous Rx's ?Medication ?Instructions ?Recorded acetaminophen 500 mg tablet 500 mg PO Q6H PRN pain #30 tabs 05/31/24 (Tylenol Extra Strength) ibuprofen 600 mg tablet 600 mg PO Q6H PRN pain #30 tabs 05/31/24 lidocaine 4 % topical patch 1 patch topical DAILY PRN pain #30 05/31/24 (AsperFlex (lidocaine)) ea methocarbamol 750 mg tablet 750 mg PO TID 3 days #9 tabs 05/31/24 Allergies Allergy/AdvReac Type Severity Reaction Status Date / Time No Known Allergies Allergy Verified 05/31/24 07:18 [No Known Allergies*] Review of Systems Review of Systems: Yes all other systems are reviewed and are negative Constitutional: Constitutional: Reports as per HPI [facility] Past Medical History Medical History Renal calculi No known health problems Social History Social History Alcohol intake: current Alcohol intake frequency: holidays/special occasions only Alcohol type: beer Patient Tobacco Use Status: Never used Tobacco Advance Directives: No Advance Directives Information Provided: Yes Physical Exam ED Vital Signs: Vital Signs - 24 hr 05/31/24 07:13 Temperature 98.6 F Pulse Rate 92 Respiratory Rate 16 Blood Pressure 136/89 Pulse Oximetry 100 Oxygen Delivery Method Room Air BMI result Body Mass Index 34.7 Const General: cooperative, comfortable and no acute distress Orientation/consciousness: patient oriented x3 Limitations: no limitations HENMT Head: Yes normal to inspection, Yes normocephalic and Yes atraumatic Ears: hearing grossly normal bilaterally General nose exam: Normal external nose present Face and sinus: Yes normal facial exam Mouth: Normal oral and palatal mucosa present, oropharynx normal and moist mucous membranes Throat: Yes posterior oropharynx normal Eyes General: appearance normal, both eyes and all related structures Eyelids: Yes eyelids normal Conjunctivae: conjunctivae normal Sclerae: sclerae normal Pupils: Equal, round and reactive pupils present EOM: EOMs intact bilaterally Neck Neck: Yes normal visual inspection, Yes full ROM and Yes no lymphadenopathy Lymphatic: no lymphadenopathy noted Chest Chest palpation & inspection: normal inspection of the chest Resp Effort & Inspection: normal respiratory effort and able to speak in complete sentences Auscultation: clear to auscultation bilaterally, no crackles, no rales, no rhonchi and no wheezes Cardio Rate: regular rate Rhythm: regular rhythm Heart sounds: S1 normal heart sound present and S2 normal heart sound present GI Other: Abdomen is soft, nontender, nondistended Inspection: Yes normal to inspection Back/Spine/Pelvis Other: No midline spine tenderness, he has tenderness palpation along the left thoracic paraspinous muscles distal sensation circulation intact. He is ambulatory with steady gait. Strength 5/5 in lower extremities Skin General skin exam: no rashes or lesions noted Trauma: no lacerations or abrasions Wounds: no wounds Neuro General: patient oriented x3 and moves all extremities Cranial nerves: Yes Equal, round and reactive pupils present Extrem General: Yes normal to inspection Right upper extremity: normal to inspection Left upper extremity: normal to inspection Right lower extremity: normal to inspection Left lower extremity: normal to inspection Course Reevaluation(s) Reevaluation #1: X-rays are unremarkable. Discussed findings with patient. Will discharged on Flexeril, Lidoderm patches, given strict return precautions. He understands and agrees with plan. Patient stable for discharge. Time: 10:55 Medications Administered Discontinued Medications Generic Name Dose Route Start Last Admin Trade Name Freq PRN Reason Stop Dose Admin Ketorolac Tromethamine 30 mg 05/31/24 09:46 05/31/24 09:54 Ketorolac Tromethamine 30 Mg/Ml Vial IM 05/31/24 09:47 30 mg ONCE ONE Administration Medical Decision Making Medical Decision Making [facility] Narrative: This is a 39-year-old male who presents emergency department with complaints of back constipation. On arrival, vital signs within normal limits. He is speaking full sentences under no acute distress. Abdomen is soft and nontender. Patient has tenderness palpation along the left thoracic paraspinous muscles with spasm noted. No midline spine tenderness. This patient presents with back pain most consistent with lumbar spasm. Differential diagnoses includes lumbago versus musculoskeletal spasm / strain versus sciatica.No back pain red flags on history or physical. Presentation not consistent with malignancy (lack of history of malignancy, lack of B symptoms), fracture (no trauma, no bony tenderness to palpation), cauda equina syndrome (no bowel or urinary incontinence, no saddle anesthesia, no distal weakness), pyelonephritis (afebrile, no CVAT, no urinary symptoms). Patient is ambulatory with steady gait. Plan: KUB, lumbar spine x-rays, UA, Toradol Differential Diagnosis Differential Diagnoses: The differential diagnosis associated with the presentation includes See above Admission/Observation Consideration of admission/observation: Escalation of care including admission/observation considered Lab Data MDM Lab Attestation statement: I reviewed the patient's lab results. UA negative Labs: Lab Results 05/31/24 Range/Units 08:15 Urine Color Yellow Urine Appearance Turbid Urine pH 8.5 (5.0-9.0) Ur Specific [place] 1.010 (1.005-1.025) Urine Protein Negative (Neg-Trace) mg/dL Urine Glucose (UA) Negative (Negative) mg/dL Urine Ketones Negative (Negative) mg/dL Urine Blood Negative (Negative) Urine Nitrite Negative (Negative) Ur Leukocyte Esterase Negative (Negative) Radiology Impression Discussion of test interpretation with radiology: I have reviewed the radiologist's reading. Radiologist Impression: XR/XR lumbar spine 2-3V IMPRESSION: Unremarkable examination. Electronically signed by: Jeff Butler MD 05/31/2024 09:53 AM EST RP Dictated By: Jeff Butler MD XR/XR KUB IMPRESSION: Unremarkable study. Electronically signed by: Jeff Butler MD 05/31/2024 09:52 AM EST RP Dictated By: Jeff Butler MD Discharge Plan Discharge Clinical Impression: Back strain Qualifiers: Encounter type: initial encounter Qualified Code(s): S39.012A - Strain of muscle, fascia and tendon of lower back, initial encounter Constipation Qualifiers: Constipation type: unspecified constipation type Qualified Code(s): K59.00 - Constipation, unspecified Patient Disposition: Home, Self-Care Instructions: High Fiber Diet (ED), Low Back Strain (ED), Acute Low Back Pain (ED), Lower Back Exercises (ED) Additional Instructions: You were seen in the emergency department due to back pain and constipation. Your x-rays of your back do not reveal any bony abnormalities. Your abdominal x-ray does not show any bowel obstruction. It is very important that you stay well hydrated, gentle stretching, massage, heat or ice to the area can also help with your pain in your back. You likely have a muscle strain that is causing you to have back pain. You may take muscle relaxants as needed for pain and symptoms, alternate between ibuprofen and Tylenol as needed. Robaxin as a muscle relaxants, please be advised that this can cause drowsiness, do not drink alcohol or drive while taking this medication. Please follow-up with your primary care physician as a referral to physical therapy for your back pain can be extremely helpful as well as discussing changes in bowel habits with your primary care as well. See attached documentation for high-fiber diet techniques. I am also prescribing you a medication called MiraLax and docusate. MiraLax as a laxative that will help stimulate the colon to have more regular bowel movements, docusate can soften the stool if your stool is very hard. The combination of these 2 can help with constipation problems. If you start to develop diarrhea, discontinue these medications. If any new or worsening symptoms occur including but not limited to worsening back pain, numbness or tingling into your groin, loss of bowel or bladder control, please seek emergent care. Prescriptions: New methocarbamol 750 mg tablet 750 mg PO TID 3 Days Qty: 9 0RF ibuprofen 600 mg tablet 600 mg PO Q6H PRN (Reason: pain) Qty: 30 0RF acetaminophen [Tylenol Extra Strength] 500 mg tablet 500 mg PO Q6H PRN (Reason: pain) Qty: 30 0RF lidocaine [AsperFlex (lidocaine)] 4 % adhesive patch,medicated 1 patch topical DAILY PRN (Reason: pain) Qty: 30 0RF No Action amlodipine 5 mg tablet 5 mg PO DAILY hydrochlorothiazide 12.5 mg tablet 12.5 mg PO DAILY Stand Alone Forms: Work/School Release Print Language: [place]
[2024-05-31] MEDS: Ketorolac Tromethamine 30 MG/ML VIAL IM (09:54)
[2024-05-31 10:52] VITALS: BP 149/96; PULSE 70; RESP 16; TEMP 36.6; O2SAT 96
== END 2024-05-31 11:14 | disposition home or self-care (01) ==
PROVIDERS: Emergency Provider Student in an Organized Health Care Education/Training Program
DX: S39.012A Strain of muscle, fascia and tendon of lower back, initial encounter (principal); K59.00 Constipation, unspecified; R10.2 Pelvic and perineal pain; X58.XXXA Exposure to other specified factors, initial encounter; Y93.89 Activity, other specified; Y92.89 Other specified places as the place of occurrence of the external cause; Y99.8 Other external cause status; Z79.899 Other long term (current) drug therapy
CPT/HCPCS: 72100; 74018; 81003; 96372; 99283; 99284; J1885